=== PATIENT | male | born 1980 ===

== ENCOUNTER 2021-07-31 00:02 | Observation (INO) | payer SELFPAY ==
--- NOTE | 2021-07-31 00:51 | Emergency Department Report ---
ED Abdominal Pain HPI - General Chief Complaint: Abdominal Pain Stated Complaint: ANAL PAIN PUI?: No Time Seen by Provider: 07/31/21 00:22 Source: patient Mode of arrival: Ambulatory Limitations: No Limitations - History of Present Illness Initial Comments: cc: "I'm lozano. I have a bottle stuck." CMGE Latvian language line concrete pump operator helper used via phone to obtain history. HPI: This is a 41-year-old male without significant past medical history who presents with abdominal pain and rectal foreign body. 6 hours ago, patient in serted a glass bottle of perfume up his rectum. Subsequently he has had lower abdominal pain 8 out of 10 dull. He attempted to retrieve a bottle without success. He has mild bleeding after the retrieval attempt. He denies fever denies vomiting. No past surgical history. MD Complaint: abdominal pain -: Sudden, hour(s) (6 hours ago after insertion of perfume bottle into rectum) Location: LLQ, RLQ Severity: severe Severity scale (0 -10): 8 Consistency: constant Improves With: nothing Worsens With: nothing Context: other (Rectal bleeding) - Related Data Allergies Allergy/AdvReac Type Severity Reaction Status Date / Time No Known Allergies Allergy Verified 07/31/21 00:19 ED Review of Systems ROS: Stated complaint: ANAL PAIN Other details as noted in HPI Comment: All other systems reviewed and negative Constitutional: denies: chills, fever, malaise Respiratory: denies: cough, shortness of breath Cardiovascular: denies: chest pain Gastrointestinal: abdominal pain. denies: nausea, vomiting, diarrhea ED Past Medical Hx - Past Medical History Previous Medical History?: No - Surgical History Past Surgical History?: No - Social History Smoking Status: Current Every Day Smoker Substance Use Type: Alcohol ED Physical Exam - General Limitations: No Limitations General appearance: alert, in no apparent distress, other (Walking around, appears uncomfortable) - Head Head exam: Present: atraumatic, normocephalic - Eye Eye exam: Present: normal appearance - ENT ENT exam: Present: mucous membranes moist - Neck Neck exam: Present: normal inspection, full ROM - Respiratory Respiratory exam: Present: normal lung sounds bilaterally. Absent: respiratory distress, wheezes, rales, rhonchi - Cardiovascular Cardiovascular Exam: Present: regular rate, normal rhythm, normal heart sounds. Absent: systolic murmur, diastolic murmur, rubs, gallop - GI/Abdominal GI/Abdominal exam: Present: soft, normal bowel sounds. Absent: distended, tenderness, guarding, rebound - Rectal Rectal exam: Present: normal rectal tone, other (Blood at the rectum, able to palpate hard rectal foreign body at the very tip of finger on digital exam) - Extremities Exam Extremities exam: Present: normal inspection - Neurological Exam Neurological exam: Present: alert, oriented X3 - Psychiatric Psychiatric exam: Present: normal affect, normal mood - Skin Skin exam: Present: warm, dry, intact, normal color. Absent: rash ED Course Vital Signs 07/31/21 00:15 Temperature 98.0 F Pulse Rate 112 H Respiratory 22 Rate Blood Pressure 122/95 O2 Sat by Pulse 95 Oximetry - Reevaluation(s) Reevaluation #1: 07/31/21 02:42 Dr. Quiroz evaluated patient emergency department. He will take patient to the operating room. ED Medical Decision Making - Lab Data Result diagrams: 07/31/21 00:48 07/31/21 00:48 - Radiology Data Radiology results: report reviewed Patient Name: SHABANA PIERCE Gender: Male Date of : 1980 Home Phone: Referring Provider: ASHLIE CUNNINGHAM Organization: [facility] Accession Number: [id number] Requested Date: July 31, 2021 00:36 Report Status: Final Requested Procedure: 1 Procedure Description: XR abdomen 1V ap Modality: XR Findings Reporting MD: Per Fuentes Dictation Time: July 31, 2021 00:15 [place]: Not available Inside Finisher Date: ABDOMEN 1 VIEW(S) INDICATION / CLINICAL INFORMATION: rectal foreign body. COMPARISON: None available. FINDINGS: TUBES / LINES: None. BOWEL GAS PATTERN: There is an elongate cylindrical radiolucent foreign body in the rectum. No dilated small bowel. FREE AIR / EXTRALUMINAL GAS: None seen. ADDITIONAL FINDINGS: No significant additional findings. IMPRESSION: 1. Elongated cylindrical radiolucent foreign body in the rectum. Signer Name: Per Fuentes MD Signed: 07/31/2021 12:15 AM Workstation Name: [id number] - Medical Decision Making This is a healthy 41-year-old male with with pain rectal foreign body. Large bottle seen on KUB. Dr. Quiroz will take patient to the operating room. No free air to indicate perforation on KUB. Dr. Quiroz will take patient from the emergency department to the operating room. Patient stated that his last intake of food was 10 AM. CBC chemistry unremarkable Critical care attestation.: If time is entered above; I have spent that time in minutes in the direct care of this critically ill patient, excluding procedure time. ED Disposition Clinical Impression: Rectal foreign body, Abdominal pain Disposition: ADMITTED INPATIENT Is pt being admited?: Yes Does the pt Need Aspirin: No Condition: Stable
--- NOTE | 2021-07-31 01:19 | XRay Report ---
ABDOMEN 1 VIEW(S) INDICATION / CLINICAL INFORMATION: rectal foreign body. COMPARISON: None available. FINDINGS: TUBES / LINES: None. BOWEL GAS PATTERN: There is an elongate cylindrical radiolucent foreign body in the rectum. No dilate d small bowel. FREE AIR / EXTRALUMINAL GAS: None seen. ADDITIONAL FINDINGS: No significant additional findings. IMPRESSION: 1. Elongated cylindrical radiolucent foreign body in the rectum. Signer Name: Per Fuentes MD Signed: 07/31/2021 1:15 AM Workstation Name: [id number]
[2021-07-31 01:36] LABS: Basophils % (Auto) 0.2 % (0.0-1.8); Eosinophils # (Auto) 0.1 K/mm3 (0.0-0.4); Eosinophils % (Auto) 0.7 % (0.0-4.3); Hemoglobin 15.8 gm/dl (11.8-15.2); Lymphocytes # (Auto) 2.5 K/mm3 (1.2-5.4); Lymphocytes % (Auto) 21.9 % (13.4-35.0); Mean Corpuscular HGB Conc 33 % (32-34); Mean Corpuscular Volume 87 fl (84-94); Monocytes # (Auto) 0.8 K/mm3 (0.0-0.8); Platelet Count 287 K/mm3 (140-440); Red Blood Count 5.54 M/mm3 (3.65-5.03); Red Cell Distribution Width 13.2 % (13.2-15.2)
[2021-07-31 01:37] LABS: Alanine Aminotransferase 58 units/L (7-56); Albumin 4.9 g/dL (3.9-5); BUN/Creatinine Ratio 19; Blood Urea Nitrogen 19 mg/dL (9-20); Calcium 9.8 mg/dL (8.4-10.2); Hemolysis Index 4
[2021-07-31 01:46] LABS: Hematocrit 48.4 % (35.5-45.6)
[2021-07-31] MEDS ORDERED: MORPHINE 2 MG/1 ML INJ IV PRN ×2 (02:17→03:24)
[2021-07-31] MEDS ORDERED: MORPHINE 2 MG/1 ML INJ IM ONE (02:17)
--- NOTE | 2021-07-31 03:04 | Consultation ---
History of Present Illness Consult date: 07/31/21 Chief complaint: Rectal foreign body - History of present illness History of present illness: 41 year old homosexual male who inserted a glass perfume bottle up his rectum about 6 hours prior to presentation. He now c/o abdominal and rectal pain. Medications and Allergies Allergies Allergy/AdvReac Type Severity Reaction Status Date / Time No Known Allergies Allergy Verified 07/31/21 00:19 Active Meds: Active Medications Morphine Sulfate (Morphine 2 Mg/1 Ml Inj) 2 mg IV Q5MIN PRN PRN Reason: Chest Pain unrelieved by NTG Last Admin: 07/31/21 02:46 Dose: 2 mg Documented by: Review of Systems All systems: negative (none) Exam Vital Signs Temp Pulse Resp BP Pulse Ox 98.0 F 112 H 22 122/95 95 07/31/21 00:15 07/31/21 00:15 07/31/21 00:15 07/31/21 00:15 07/31/21 00:15 - General physical appearance Positive: well developed, well nourished, no distress - Eyes Positive: PERRL, normal occular movement - ENT Positive: normal pinna, normal nares, normal mucosa, no hearing loss, no congestion - Neck Positive: no masses, no bruits, trachea midline, no venous distension - Respiratory Positive: normal expansion, normal respiratory effort, clear to auscultation - Cardiovascular Rhythm: regular Heart Sounds: Present: S1 & S2. Absent: rub, click - Extremities Extremities: no ischemia, pulses symmetrical, No edema - Breasts Breasts: normal, no mass, no skin changes - Abdomen Abdomen: Present: soft, bowel sounds normal, other (Mild diffuse tenderness without rebound or guarding.). Absent: distended Hernia: none - Genitourinary Male Genitourinary: normal Female Genitourinary: normal - Rectum Rectum: other (Anus is very patulous with no difficulty passing three fingers and my thumb into his distal rectum. The perfume bottle could be palpated but could not be grasped.) - Integumentary no rash, no growths, no abnormal pigmentation - Neurologic Neurologic: alert and oriented to time, place and person, motor strength and sensation are grossly intact - Musculoskeletal normal gait, normal posture - Psychiatric Psychiatric: appropriate mood/affect, intact judgment & insight Results - Labs 07/31/21 00:48 07/31/21 00:48 Abnormal lab results 07/31/21 07/31/21 Range/Units 00:48 00:48 WBC 11.4 H (4.5-11.0) K/mm3 RBC 5.54 H (3.65-5.03) M/mm3 Hgb 15.8 H (11.8-15.2) gm/dl Hct 48.4 H (35.5-45.6) % Seg Neutrophils % 70.2 H (40.0-70.0) % Seg Neutrophils # 8.0 H (1.8-7.7) K/mm3 Glucose 127 H (75-100) mg/dL ALT 58 H (7-56) units/L Diabetes panel 07/31/21 Range/Units 00:48 Sodium 138 (137-145) mmol/L Potassium 4.4 (3.6-5.0) mmol/L Chloride 101.4 (98-107) mmol/L Carbon Dioxide 22 (22-30) mmol/L BUN 19 (9-20) mg/dL Creatinine 1.0 (0.8-1.3) mg/dL Glucose 127 H (75-100) mg/dL Calcium 9.8 (8.4-10.2) mg/dL AST 29 (5-40) units/L ALT 58 H (7-56) units/L Alkaline Phosphatase 109 (35-129) units/L Total Protein 7.7 (6.3-8.2) g/dL Albumin 4.9 (3.9-5) g/dL Calcium panel 07/31/21 Range/Units 00:48 Calcium 9.8 (8.4-10.2) mg/dL Albumin 4.9 (3.9-5) g/dL Pituitary panel 07/31/21 Range/Units 00:48 Sodium 138 (137-145) mmol/L Potassium 4.4 (3.6-5.0) mmol/L Chloride 101.4 (98-107) mmol/L Carbon Dioxide 22 (22-30) mmol/L BUN 19 (9-20) mg/dL Creatinine 1.0 (0.8-1.3) mg/dL Glucose 127 H (75-100) mg/dL Calcium 9.8 (8.4-10.2) mg/dL Adrenal panel 07/31/21 Range/Units 00:48 Sodium 138 (137-145) mmol/L Potassium 4.4 (3.6-5.0) mmol/L Chloride 101.4 (98-107) mmol/L Carbon Dioxide 22 (22-30) mmol/L BUN 19 (9-20) mg/dL Creatinine 1.0 (0.8-1.3) mg/dL Glucose 127 H (75-100) mg/dL Calcium 9.8 (8.4-10.2) mg/dL Total Bilirubin 0.90 (0.1-1.2) mg/dL AST 29 (5-40) units/L ALT 58 H (7-56) units/L Alkaline Phosphatase 109 (35-129) units/L Total Protein 7.7 (6.3-8.2) g/dL Albumin 4.9 (3.9-5) g/dL - Imaging Abdominal x-ray: report reviewed, image reviewed Assessment and Plan - Patient Problems (1) Rectal foreign body Status: Acute Plan to address problem: 1) After 4 mg of IV Morphine, I performed anoscopy and attempted to removed the bottle. Abdominal pressure was simultaneously applied but removal was not successful. I informed the pt, via a hospital cleaning porter that we need to go to the OR and see if the bottle can be removed transanally under general anesthesia. If this is also unsuccessful, pt is aware that laparotomy and even colotomy/colostomy is possible.
--- NOTE | 2021-07-31 03:16 | History and Physical Report ---
History of Present Illness Date of examination: 07/31/21 Date of admission: 07/31/21 Chief complaint: abdominal pain History of present illness: This is a 41-year-old male seen in ED at bedside. Patient said he came to the hospital with chief complaint of abdominal pain and rectal foreign body. Patient denied any past medical history including surgical history. Patient admits tobacco use, alcohol use, and illicit drug use. Reviewed radiology report of CT of the abdomenshowed presence of foreign body that is cylindrical in the rectum. Patient reported abdominal pain of 8/10 in a pain scale of 0-10. General surgeon has been consulted. Patient advised to be n.p.o. till morning for possible surgery. Past History Past Medical History: No medical history Past Surgical History: No surgical history Social history: no significant social history Medications and Allergies Allergies Allergy/AdvReac Type Severity Reaction Status Date / Time No Known Allergies Allergy Verified 07/31/21 00:19 Active Meds: Active Medications Morphine Sulfate (Morphine 2 Mg/1 Ml Inj) 2 mg IV Q5MIN PRN PRN Reason: Chest Pain unrelieved by NTG Last Admin: 07/31/21 02:46 Dose: 2 mg Documented by: Review of Systems Ears, nose, mouth and throat: no epistaxis, no bleeding gums Gastrointestinal: abdominal pain Rectal: pain, bleeding Integumentary: no rash, no pruritis, no redness Neurological: no head injury Psychiatric: anxiety Exam - Constitutional Vitals: Temp Pulse Resp BP Pulse Ox 98.0 F 112 H 22 122/95 95 07/31/21 00:15 07/31/21 00:15 07/31/21 00:15 07/31/21 00:15 07/31/21 00:15 General appearance: Present: severe distress - EENT Eyes: Present: PERRL ENT: hearing intact, clear oral mucosa - Neck Neck: Present: supple, normal ROM - Respiratory Respiratory effort: normal Respiratory: bilateral: CTA - Cardiovascular Heart Sounds: Present: S1 & S2. Absent: rub, click - Extremities Extremities: pulses symmetrical, No edema Peripheral Pulses: within normal limits - Abdominal General gastrointestinal: Present: soft, tender, normal bowel sounds Male genitourinary: Present: normal - Integumentary Integumentary: Present: clear, warm, dry - Musculoskeletal Musculoskeletal: gait normal, strength equal bilaterally - Psychiatric Psychiatric: appropriate mood/affect, intact judgment & insight, cooperative - Neurologic Neurologic: CNII-XII intact, moves all extremities - Allied Health Allied health notes reviewed: nursing Results - Labs CBC & Chem 7: 07/31/21 00:48 07/31/21 00:48 Labs: Abnormal lab results 07/31/21 07/31/21 Range/Units 00:48 00:48 WBC 11.4 H (4.5-11.0) K/mm3 RBC 5.54 H (3.65-5.03) M/mm3 Hgb 15.8 H (11.8-15.2) gm/dl Hct 48.4 H (35.5-45.6) % Seg Neutrophils % 70.2 H (40.0-70.0) % Seg Neutrophils # 8.0 H (1.8-7.7) K/mm3 Glucose 127 H (75-100) mg/dL ALT 58 H (7-56) units/L Assessment and Plan - Patient Problems (1) Rectal foreign body Status: Acute Plan to address problem: General surgeon consulted Continue NPO status Reviewed a CT of the abdomen reportsshowed elongated cylindrical foreign body in the rectum. (2) Abdominal pain Status: Acute Plan to address problem: pain management PRN (3) Tobacco use disorder Status: Acute Plan to address problem: , Cardiovascular neoplasm syndrome of tobacco use explained to patient (4) Illicit drug use Status: Acute Plan to address problem: Discussed cessation (5) Alcohol abuse Status: Acute Plan to address problem: Discussed cessation (6) DVT prophylaxis Status: Acute Plan to address problem: SCD
[2021-07-31] MEDS ORDERED: NALOXONE 0.4 MG/1 ML INJ IV PRN (03:24)
[2021-07-31] MEDS ORDERED: oxyCODONE /ACETAMINOPHEN 5-325MG TAB PO PRN (03:24)
[2021-07-31] MEDS ORDERED: METOCLOPRAMIDE 10 MG/2 ML INJ IV PRN (03:24)
[2021-07-31] MEDS ORDERED: ACETAMINOPHEN 325 MG TAB PO PRN (03:24)
[2021-07-31] MEDS ORDERED: ONDANSETRON 4 MG/2 ML INJ IV PRN (03:24)
[2021-07-31] MEDS ORDERED: SODIUM CHLORIDE 0.9% 1000 ML 1,000 ML IV SCH (03:30)
[2021-07-31] MEDS ORDERED: LACTATED RINGERS 1,000 ML ONE ×2 (03:45→04:49)
[2021-07-31] MEDS ORDERED: BUPIVACAINE/PF (0.5%) 5 MG/1 ML 30 ML VIAL INFILTRATI ONE (03:49)
[2021-07-31] MEDS ORDERED: LIDOCAINE (1%) 10 MG/1 ML VIAL 20 ML MDV ONE (03:49)
--- NOTE | 2021-07-31 03:54 | Anesthesia Consultation ---
Anesthesia Consult and Med Hx Date of service: 07/31/21 - Airway Anesthetic Teeth Evaluation: Good ROM Head & Neck: Adequate Mental/Hyoid Distance: Adequate Mallampati Class: Class I Intubation Access Assessment: Probably Good - Pulmonary Exam CTA: Yes - Pre-Operative Health Status ASA Pre-Surgery Classification: ASA2 Proposed Anesthetic Plan: General - Pulmonary Hx Smoking: Yes Hx Respiratory Symptoms: No Hx Sleep Apnea: No - Cardiovascular System Hx Hypertension: No Hx Angina: No Hx Heart Murmur: No - Central Nervous System Hx Seizures: No Hx Psychiatric Problems: Yes (Anxiety) - Endocrine Hx Renal Disease: No Hx Liver Disease: No Hx Insulin Dependent Diabetes: No Hx Non-Insulin Dependent Diabetes: No Hx Thyroid Disease: No - Other Systems Hx Alcohol Use: Yes Hx Substance Use: Yes (Marijuana) Hx Obesity: Yes
--- NOTE | 2021-07-31 03:56 | Anesthesia Day of Surgery ---
Anesthesia Day of Surgery - Day of Surgery Patient Examined: Yes Patient H&P Reviewed: Yes Patient is NPO: Yes Beta Blockers: No Cardiac Clearance: No Pulmonary Clearance: No
[2021-07-31] MEDS ORDERED: fentaNYL 100 MCG/2 ML INJ ONE (04:07)
[2021-07-31] MEDS ORDERED: LIDOCAINE MPF (2%) 20 MG/1 ML VIAL 5 ML ONE (04:07)
[2021-07-31] MEDS ORDERED: ONDANSETRON 4 MG/2 ML INJ ONE (04:07)
[2021-07-31] MEDS ORDERED: propofoL 200 MG/20 ML VIAL IV ONE (04:07)
[2021-07-31] MEDS ORDERED: dexAMETHasone 20 MG/5 ML VIAL ONE (04:41)
[2021-07-31] MEDS ORDERED: SUCCINYLCHOLINE CHLORIDE 200 MG/10 ML INJ MDV ONE (04:41)
--- NOTE | 2021-07-31 04:45 | Procedure Note ---
Date of procedure: 07/31/21 Pre-op diagnosis: Rectal foreign body Post-op diagnosis: same Procedure: 1) EUA with transanal removal of rectal foreign body 2) Flexible sigmoidoscopy Description of procedure: Pt was placed supine on the OR table. General anesthesia was administered. Pt was re-positioned to a dorsal lithotomy position. Several anal retractors were inserted without being able to see the rectal foreign body. The anal canal was quite patulous and with general anest hesia relaxation, I was able to insert my entire right hand into the pt's rectum. The bottle was grasped and removed. Flexible sigmoidoscopy to 15 cm was then performed revealing no mucosa injury or ischemia and no evidence of any anal fissures/tears. Pt tolerated the procedure well. Pt was taken to PACU in stable condition. Anesthesia: other (LMA) Surgeon: JOSESITO PARSON Estimated blood loss: minimal Pathology: none Specimen disposition: discarded Condition: stable Disposition: PACU
--- NOTE | 2021-07-31 05:09 | Post Anesthesia Evaluation ---
- Post Anesthesia Evaluation Patient Participated: Yes Airway Patent: Yes Stable Respiratory Function: Yes Nausea/Vomiting: No Temp > 96.8F: Yes Pain Manageable: Yes Adequeate Hydration: Yes Anesthesia Complications: No Block Receding Appropriately: Not Applicable Patient on Ventilator: No
[2021-07-31 06:25] VITALS: BP 116/81
--- NOTE | 2021-07-31 11:07 | Discharge Summary ---
Providers - Providers Date of Admission: 07/31/21 05:00 Date of discharge: 07/31/21 Attending physician: CHINA LEMUS MD 07/31/21 01:13 Consult to Physician [CONS] Stat Comment: Dr. Mendes spoke with Dr. Quiroz @ [phone] Consulting Provider: JOSESITO QUIROZ Physician Instructions: Reason For Exam: rectal foreign body Primary care physician: DRY ROLLER Hospitalization Reason for admission: Rectal pain and foreign body Condition: Stable Procedures: Anoscopy Evaluation anesthesia with removal of foreign body Hospital course: 41-year-old male with no significant past medical history who presented with rectal pain after insertion of foreign body 6 hours prior. General surgery was consulted and attempted to remove the object at the bedside unsuccessfully. Patient was taken to the OR for evaluation under anesthesia. Foreign body was removed. Patient with flatus and bowel movement after removal of foreign body. Patient was discharged home when clinically stable. Disposition: 01 HOME / SELF CARE / HOMELESS Final Discharge Diagnosis (Prints w/discharge instructions): Foreign body in the rectum Time spent for discharge: 10 minutes Core Measure Documentation - Palliative Care Palliative Care/ Comfort Measures: Not Applicable - Core Measures Any of the following diagnoses?: none Exam - Physical Exam Narrative exam: GENERAL: Well-developed well-nourished. No acute distress. CHEST/LUNGS: CTAB on room air HEART/CARDIOVASCULAR: RRR. No murmur, rubs or gallops appreciated. ABDOMEN: +BS. NT/ND. NEURO: No focal motor deficit. Follows all commands and is ambulatory. EXTREMITIES: No cyanosis, clubbing or edema. PSYCH: Cooperative. - Constitutional Vitals: Temp Pulse Resp BP Pulse Ox 97.8 F 88 20 116/81 97 07/31/21 05:20 07/31/21 05:20 07/31/21 10:59 07/31/21 05:20 07/31/21 05:20 Plan Care Plan Goals: Please return if you experience anal bleeding or pain. Assessment: Patient presented with foreign body in anus and rectal pain. Foreign body removed in OR. Postprocedure patient is well and has had a bowel movement. Stable for discharge. Follow up with: AKI ALMAGUER MD [Primary Care Provider] - 7 Days
== END 2021-07-31 14:30 | disposition home or self-care (01) ==
LOC: ED 00:02 → OR 04:16 → 3A 05:00
PROVIDERS: ADMIT Internal Medicine Geriatric Medicine; ATTEND Student in an Organized Health Care Education/Training Program
DX: T18.5XXA Foreign body in anus and rectum, initial encounter (principal); R10.9 Unspecified abdominal pain; F17.210 Nicotine dependence, cigarettes, uncomplicated; F10.10 Alcohol abuse, uncomplicated; F19.90 Other psychoactive substance use, unspecified, uncomplicated; Y92.89 Other specified places as the place of occurrence of the external cause; Y93.89 Activity, other specified; Y99.8 Other external cause status
CPT/HCPCS: 36415; 45330; 74018; 80053; 83690; 85025; 96372; 96374; 99284; G0378; J0330; J1100; J2270; J2405; J2704; J3010; J7120